=== PATIENT | male | born 1950 | race Caucasian/White ===

== ENCOUNTER 2017-11-01 10:13 | Emergency (ER) | payer MEDICARE ==
[~2017-11-01] VITALS: Ht 177.8 cm; Wt 117.9 kg
[~2017-11-01 10:13] MED LIST: Amitriptyline100 MG PO; CARV25 PO; COUMADIN; DIGO.125 PO; DOFE250; DOFE500 PO; GEMF600 PO; HYDACE10B PO; HYDCOR1TC TOP; IBUP800 PO; INSULANI SC; INSULANPEN SC; LISI5 PO; METF500C; METO100; METO100 PO; METO50 PO; PIOG45 PO; PRADAXA75 MG PO; Prednisone20 MG PO; SIMVASTIN PO; WARF10 PO; WARF7.5 PO
[2017-11-01] MEDS ORDERED: SIMV10 PO (10:36)
[2017-11-01] MEDS ORDERED: Colace100 MG PO (10:49)
[2017-11-01] MEDS ORDERED: Percocet 5-3251 EACH PO (10:49)
[2017-11-01] MEDS ORDERED: Cyclobenzaprine5 MG PO (10:49)
== END 2017-11-01 10:50 | disposition home or self-care (01) ==
LOC: ER 10:13
DX: M54.2 Cervicalgia (principal); Z79.899 Other long term (current) drug therapy; Z79.4 Long term (current) use of insulin; I48.91 Unspecified atrial fibrillation; Z87.891 Personal history of nicotine dependence
CPT/HCPCS: 99283

== ENCOUNTER 2018-01-27 11:52 | Observation (INO) | payer MEDICARE ==
[~2018-01-27] VITALS: Ht 177.8 cm; Wt 111.5 kg
[~2018-01-27 11:52] MED LIST changes: +Colace100 MG PO; +Cyclobenzaprine5 MG PO; +Percocet 5-3251 EACH PO; +SIMV10 PO
[2018-01-27 12:20] LABS: BASOPHILS ABSOLUTE AUTO 0.09 K/mm3 (0.00-0.23); BASOPHILS PERCENT AUTO 1 % (0-2); EOSINOPHILS ABSOLUTE AUTO 0.09 K/mm3 (0.00-0.68); EOSINOPHILS PERCENT AUTO 1 % (0-6); Hematocrit 49.3 % (37.0-53.0); Hemoglobin 16.6 g/dL (13.5-17.5); IMMATURE GRAN ABSOLUTE AUTO 0.06 K/mm3 (0.00-0.10); IMMATURE GRAN PERCENT AUTO 0 % (0-1); LYMPHOCYTES ABSOLUTE AUTO 2.26 K/mm3 (0.84-5.20); LYMPHOCYTES PERCENT AUTO 16 % (21-46); MONOCYTES PERCENT AUTO 6 % (4-13); Mean Corpuscular HGB Conc 33.7 g/dL (31.5-36.5); Mean Corpuscular Volume 92 fL (80-100); Mean Platelet Volume 10.4 fL (9.1-12.4); NEUTROPHILS ABSOLUTE AUTO 10.45 K/mm3 (1.96-9.15); NEUTROPHILS PERCENT AUTO 76 % (41-73); Platelet Count 276 K/mm3 (150-400); RDW Coefficient Variation 13.9 % (11.7-14.2); Red Blood Cell Count 5.36 M/mm3 (4.30-5.90); White Blood Cell Count 13.75 K/mm3 (4.00-11.30)
[2018-01-27] MEDS ORDERED: Novolog Fl100 UNIT/1 INJ (12:39)
[2018-01-27 12:40] LABS: Alanine Aminotransfer (ALT/SGP 33 U/L (12-78); Albumin, Blood 4.1 g/dL (3.4-5.0); Albumin/Globulin Ratio 0.9 (0.8-1.8); Alk Phos 88 U/L (50-136); Anion Gap 10 mmol/L (6-16); Aspartate Aminotrans (AST/SGOT 9 U/L (12-37); Bilirubin, Total 0.4 mg/dL (0.1-1.0); Blood Urea Nitrogen 16 mg/dL (8-24); Bun/Creatinine Ratio 21.5 (12.0-20.0); CO2, Blood 24 mmol/L (21-32); Calcium, Blood 9.1 mg/dL (8.5-10.1); Chloride, Blood 105 mmol/L (98-108); Creatinine, Blood 0.74 mg/dL (0.60-1.20); Globulin, Blood 4.4 g/dL (2.2-4.0); Glomerular Filtration Rate >60 (60-); Glucose, Blood 202 mg/dL (70-99); Potassium, Blood 4.1 mmol/L (3.5-5.5); Sodium, Blood 139 mmol/L (136-145); Total Protein, Blood 8.5 g/dL (6.4-8.2); Troponin I <0.015 ng/mL (0.000-0.040)
[2018-01-27] MEDS ORDERED: NITR.4SL SL (12:41)
[2018-01-27] MEDS ORDERED: LISI5 PO (12:42)
[2018-01-27] MEDS ORDERED: Cartia Xt240 MG PO (12:42)
[2018-01-27] MEDS ORDERED: ELIQUIS5 MG PO (12:44)
[2018-01-27 13:29] LABS: Source, Urine Clean Catch
[2018-01-27 13:33] LABS: Appearance, Urine Clear (Clear); Bilirubin, Urine Neg (Neg); Blood, Urine 2+ (Neg); Color, Urine Yellow (P-Yellow); Glucose Qualitative, Urine 3+ (Neg); Ketones, Urine 2+ (Neg); Leukocyte Esterase, Urine Neg (Neg); Nitrite, Urine Neg (Neg); Protein, Urine 1+ (Neg); Urobilinogen, Urine NORM (Normal)
[2018-01-27 13:43] LABS: Bacteria Few /hpf; Mucus Light (0-Heavy); Squamous Epithelial Cells Not Seen /hpf (Few); White Blood Cells, Urine 0-2 /hpf (0-5)
[2018-01-27] MEDS ORDERED: HYDR1TAB94 PO (18:50)
[2018-01-27] MEDS ORDERED: MIRALAX17 GM PO (18:50)
[2018-01-27] MEDS ORDERED: Senna8.6 MG PO (18:51)
[2018-01-28 03:58] LABS: Hematocrit 41.7 % (37.0-53.0); Hemoglobin 13.9 g/dL (13.5-17.5); Mean Corpuscular HGB 30.7 pg (26.0-34.0); Mean Corpuscular HGB Conc 33.3 g/dL (31.5-36.5); Mean Corpuscular Volume 92 fL (80-100); Mean Platelet Volume 10.7 fL (9.1-12.4); Platelet Count 220 K/mm3 (150-400); RDW Coefficient Variation 13.9 % (11.7-14.2); RDW Standard Deviation 47.3 fL (35.1-46.3); Red Blood Cell Count 4.53 M/mm3 (4.30-5.90); White Blood Cell Count 12.08 K/mm3 (4.00-11.30)
[2018-01-28 04:19] LABS: Anion Gap 8 mmol/L (6-16); Blood Urea Nitrogen 8 mg/dL (8-24); Bun/Creatinine Ratio 11.9 (12.0-20.0); CO2, Blood 25 mmol/L (21-32); Calcium, Blood 8.3 mg/dL (8.5-10.1); Chloride, Blood 110 mmol/L (98-108); Creatinine, Blood 0.67 mg/dL (0.60-1.20); Glomerular Filtration Rate >60 (60-); Glucose, Blood 143 mg/dL (70-99); Sodium, Blood 143 mmol/L (136-145)
[2018-01-28] MEDS ORDERED: Hydrocodone-Ap1 EA20 PO (11:11)
[2018-01-28] MEDS ORDERED: Florastor250 MG PO (11:12)
[2018-01-28] MEDS ORDERED: METR500 PO (11:13)
[2018-01-28] MEDS ORDERED: CIPR500 PO (11:13)
[2018-01-28] MEDS ORDERED: PROM25 PO (11:15)
[2018-01-28] MEDS ORDERED: ABAT250V (11:15)
== END 2018-01-28 13:00 | disposition home or self-care (01) ==
LOC: ER 11:52 → PCU 11:53 → ER 16:24 → PCU 16:24
PROVIDERS: Family Medicine; Internal Medicine
DX: A41.9 Sepsis, unspecified organism (principal); K52.9 Noninfective gastroenteritis and colitis, unspecified; I48.2 Chronic atrial fibrillation; E11.9 Type 2 diabetes mellitus without complications; I10 Essential (primary) hypertension; I25.10 Atherosclerotic heart disease of native coronary artery without angina pectoris; E78.5 Hyperlipidemia, unspecified; Z87.891 Personal history of nicotine dependence; Z79.4 Long term (current) use of insulin; Z79.899 Other long term (current) drug therapy
CPT/HCPCS: 36415; 71046; 74177; 80048; 80053; 81001; 82947; 83605; 83880; 84484; 85025; 85027; 87040; 93005; 93010; 96361; 96374; 96375; 99285; C9113; G0378; J0780; J1650; J1815; J1956; J2405; J2550; J3490; J7030; J7120; Q9967

== ENCOUNTER 2019-05-25 07:01 | Emergency (ER) | payer MEDICARE ==
[~2019-05-25] VITALS: Ht 177.8 cm; Wt 112.5 kg
[~2019-05-25 07:01] MED LIST changes: +ABAT250V; +CIPR500 PO; +Cartia Xt240 MG PO; +ELIQUIS5 MG PO; +Florastor250 MG PO; +HYDR1TAB94 PO; +Hydrocodone-Ap1 EA20 PO; +METR500 PO; +MIRALAX17 GM PO; +NITR.4SL SL; +Novolog Fl100 UNIT/1 INJ; +PROM25 PO; +Senna8.6 MG PO
[2019-05-25] MEDS ORDERED: METO25 PO (07:15)
[2019-05-25] MEDS ORDERED: PACERONE100 MG PO (07:15)
[2019-05-25] MEDS ORDERED: EZET10 PO (07:16)
[2019-05-25] MEDS ORDERED: TRAZ50 PO (07:16)
[2019-05-25] MEDS ORDERED: LOVA40 PO (07:17)
[2019-05-25] MEDS ORDERED: Prinivil5 MG PO (07:17)
[2019-05-25] MEDS ORDERED: DOFE500 PO (07:18)
[2019-05-25] MEDS ORDERED: Bactrim Ds Tab1 EACH PO (07:41)
[2019-05-25] MEDS ORDERED: Mupirocin22 GM TOP (07:41)
== END 2019-05-25 07:48 | disposition home or self-care (01) ==
LOC: ER 07:01
DX: S90.412A Abrasion, left great toe, initial encounter (principal); L08.9 Local infection of the skin and subcutaneous tissue, unspecified; F17.200 Nicotine dependence, unspecified, uncomplicated; Z95.1 Presence of aortocoronary bypass graft; E11.9 Type 2 diabetes mellitus without complications; I48.91 Unspecified atrial fibrillation; W45.8XXA Other foreign body or object entering through skin, initial encounter
CPT/HCPCS: 99283

== ENCOUNTER 2020-07-01 10:52 | Emergency (ER) | payer MEDICARE ==
[~2020-07-01] VITALS: Ht 177.8 cm; Wt 105.2 kg
[~2020-07-01 10:52] MED LIST changes: +Bactrim Ds Tab1 EACH PO; +EZET10 PO; +LOVA40 PO; +METO25 PO; +Mupirocin22 GM TOP; +PACERONE100 MG PO; +Prinivil5 MG PO; +TRAZ50 PO
[2020-07-01 11:52] LABS: BASOPHILS ABSOLUTE AUTO 0.07 K/mm3 (0.00-0.23); BASOPHILS PERCENT AUTO 1 % (0-2); EOSINOPHILS ABSOLUTE AUTO 0.32 K/mm3 (0.00-0.68); EOSINOPHILS PERCENT AUTO 3 % (0-6); Hematocrit 47.2 % (37.0-53.0); Hemoglobin 15.2 g/dL (13.5-17.5); IMMATURE GRAN ABSOLUTE AUTO 0.02 K/mm3 (0.00-0.10); IMMATURE GRAN PERCENT AUTO 0 % (0-1); LYMPHOCYTES ABSOLUTE AUTO 3.27 K/mm3 (0.84-5.20); LYMPHOCYTES PERCENT AUTO 32 % (21-46); MONOCYTES ABSOLUTE AUTO 0.74 K/mm3 (0.16-1.47); MONOCYTES PERCENT AUTO 7 % (4-13); Mean Corpuscular HGB 28.6 pg (26.0-34.0); Mean Corpuscular HGB Conc 32.2 g/dL (31.5-36.5); Mean Corpuscular Volume 89 fL (80-100); Mean Platelet Volume 10.1 fL (9.1-12.4); NEUTROPHILS ABSOLUTE AUTO 5.81 K/mm3 (1.96-9.15); NEUTROPHILS PERCENT AUTO 57 % (41-73); Platelet Count 260 K/mm3 (150-400); RDW Coefficient Variation 14.1 % (11.7-14.2); RDW Standard Deviation 45.3 fL (35.1-46.3); Red Blood Cell Count 5.32 M/mm3 (4.30-5.90); White Blood Cell Count 10.23 K/mm3 (4.00-11.30)
[2020-07-01 12:10] LABS: Alanine Aminotransfer (ALT/SGP 16 U/L (12-78); Albumin, Blood 3.8 g/dL (3.4-5.0); Albumin/Globulin Ratio 0.9 (0.8-1.8); Alk Phos 106 U/L (50-136); Anion Gap 4 mmol/L (6-16); Aspartate Aminotrans (AST/SGOT 10 U/L (12-37); Bilirubin, Total 0.4 mg/dL (0.1-1.0); Blood Urea Nitrogen 14 mg/dL (8-24); CO2, Blood 28 mmol/L (21-32); Calcium, Blood 9.6 mg/dL (8.5-10.1); Chloride, Blood 107 mmol/L (98-108); Creatinine, Blood 0.74 mg/dL (0.60-1.20); Globulin, Blood 4.3 g/dL (2.2-4.0); Glomerular Filtration Rate >60 (60-); Glucose, Blood 132 mg/dL (70-99); Potassium, Blood 4.9 mmol/L (3.5-5.5); Sodium, Blood 139 mmol/L (136-145); Total Protein, Blood 8.1 g/dL (6.4-8.2)
[2020-07-01] MEDS ORDERED: Monodox100 MG PO (13:22)
== END 2020-07-01 13:32 | disposition home or self-care (01) ==
LOC: ER 10:52
PROVIDERS: Physician Assistant
DX: L03.115 Cellulitis of right lower limb (principal); Z79.4 Long term (current) use of insulin; Z79.899 Other long term (current) drug therapy
CPT/HCPCS: 36415; 73610; 80053; 85025; 99283-25

== ENCOUNTER 2020-07-14 09:45 | Emergency (ER) | payer MEDICARE ==
[~2020-07-14] VITALS: Ht 182.9 cm; Wt 85.7 kg
[~2020-07-14 09:45] MED LIST changes: +Monodox100 MG PO
[2020-07-14] MEDS ORDERED: Monodox100 MG PO (10:51)
== END 2020-07-14 10:57 | disposition home or self-care (01) ==
LOC: ER 09:45
DX: L03.116 Cellulitis of left lower limb (principal); I87.8 Other specified disorders of veins; E11.9 Type 2 diabetes mellitus without complications; I48.91 Unspecified atrial fibrillation; F17.200 Nicotine dependence, unspecified, uncomplicated; Z95.1 Presence of aortocoronary bypass graft; Z79.4 Long term (current) use of insulin; Z79.899 Other long term (current) drug therapy
CPT/HCPCS: 99283

== ENCOUNTER 2021-01-03 21:43 | Emergency (ER) | payer MEDICARE ==
[~2021-01-03] VITALS: Ht 177.8 cm; Wt 109.8 kg
[2021-01-03 22:43] LABS: BASOPHILS ABSOLUTE AUTO 0.03 K/mm3 (0.00-0.23); BASOPHILS PERCENT AUTO 0 % (0-2); EOSINOPHILS PERCENT AUTO 0 % (0-6); Hematocrit 47.6 % (37.0-53.0); Hemoglobin 16.3 g/dL (13.5-17.5); IMMATURE GRAN PERCENT AUTO 1 % (0-1); LYMPHOCYTES ABSOLUTE AUTO 1.75 K/mm3 (0.84-5.20); LYMPHOCYTES PERCENT AUTO 9 % (21-46); MONOCYTES PERCENT AUTO 7 % (4-13); Mean Corpuscular HGB 28.8 pg (26.0-34.0); Mean Corpuscular HGB Conc 34.2 g/dL (31.5-36.5); Mean Corpuscular Volume 84 fL (80-100); Mean Platelet Volume 10.6 fL (9.1-12.4); NEUTROPHILS ABSOLUTE AUTO 16.53 K/mm3 (1.96-9.15); NEUTROPHILS PERCENT AUTO 84 % (41-73); Platelet Count 283 K/mm3 (150-400); RDW Standard Deviation 43.2 fL (35.1-46.3); Red Blood Cell Count 5.65 M/mm3 (4.30-5.90); White Blood Cell Count 19.71 K/mm3 (4.00-11.30)
[2021-01-03 23:01] LABS: Alanine Aminotransfer (ALT/SGP 18 U/L (12-78); Albumin, Blood 3.5 g/dL (3.4-5.0); Albumin/Globulin Ratio 0.8 (0.8-1.8); Alk Phos 84 U/L (50-136); Anion Gap 8 mmol/L (6-16); Aspartate Aminotrans (AST/SGOT 14 U/L (12-37); Bilirubin, Total 0.7 mg/dL (0.1-1.0); Blood Urea Nitrogen 20 mg/dL (8-24); CO2, Blood 23 mmol/L (21-32); Chloride, Blood 107 mmol/L (98-108); Creatinine, Blood 0.67 mg/dL (0.60-1.20); Globulin, Blood 4.5 g/dL (2.2-4.0); Glomerular Filtration Rate >60 (60-); Glucose, Blood 235 mg/dL (70-99); Sodium, Blood 138 mmol/L (136-145)
[2021-01-04 01:29] LABS: Source, Urine Clean Catch
[2021-01-04 01:51] LABS: Bilirubin, Urine Neg (Neg); Blood, Urine 4+ (Neg); Glucose Qualitative, Urine 4+ (Neg); Ketones, Urine 2+ (Neg); Leukocyte Esterase, Urine 1+ (Neg); Nitrite, Urine Neg (Neg); Protein, Urine 3+ (Neg); Specific Gravity, Urine 1.025 (1.003-1.022); Urobilinogen, Urine NORM (Normal)
[2021-01-04 02:02] LABS: Appearance, Urine Clear (Clear); Color, Urine Yellow (P-Yellow)
[2021-01-04 02:11] LABS: Amorphous Light (0-Heavy); Bacteria Rare /hpf; Mucus Heavy (0-Heavy); Red Blood Cells, Urine 0-2 /hpf (0-2); Squamous Epithelial Cells Not Seen /hpf (Few)
[2021-01-04 02:47] LABS: Creatine Kinase MB 2.9 ng/mL (0.0-3.6); Creatine Kinase MB Index 1.4 (0.0-4.0)
[2021-01-04] MEDS ORDERED: Ondansetron Odt8 MG MM (02:54)
== END 2021-01-04 03:14 | disposition home or self-care (01) ==
LOC: ER 21:43
PROVIDERS: Emergency Medicine; Physician Assistant
DX: R10.9 Unspecified abdominal pain (principal); R11.10 Vomiting, unspecified; E11.9 Type 2 diabetes mellitus without complications; I48.91 Unspecified atrial fibrillation; F17.210 Nicotine dependence, cigarettes, uncomplicated; Z79.899 Other long term (current) drug therapy; Z79.4 Long term (current) use of insulin
CPT/HCPCS: 36415; 74176; 80053; 81001; 82550; 82553; 82947; 83605; 85025; 93005; 93010; 96374; 96375; 96376; 99284-25; J2270; J2405; J7030

== ENCOUNTER 2021-01-06 15:58 | Emergency (ER) | payer MEDICARE ==
[~2021-01-06] VITALS: Ht 177.8 cm; Wt 108.0 kg
[~2021-01-06 15:58] MED LIST changes: +Ondansetron Odt8 MG MM
[2021-01-06 17:10] LABS: BASOPHILS ABSOLUTE AUTO 0.05 K/mm3 (0.00-0.23); BASOPHILS PERCENT AUTO 0 % (0-2); EOSINOPHILS PERCENT AUTO 1 % (0-6); Hematocrit 46.8 % (37.0-53.0); Hemoglobin 15.7 g/dL (13.5-17.5); IMMATURE GRAN ABSOLUTE AUTO 0.05 K/mm3 (0.00-0.10); IMMATURE GRAN PERCENT AUTO 0 % (0-1); LYMPHOCYTES ABSOLUTE AUTO 3.79 K/mm3 (0.84-5.20); LYMPHOCYTES PERCENT AUTO 25 % (21-46); MONOCYTES ABSOLUTE AUTO 1.26 K/mm3 (0.16-1.47); MONOCYTES PERCENT AUTO 8 % (4-13); Mean Corpuscular HGB 28.6 pg (26.0-34.0); Mean Corpuscular HGB Conc 33.5 g/dL (31.5-36.5); Mean Corpuscular Volume 85 fL (80-100); NEUTROPHILS ABSOLUTE AUTO 10.13 K/mm3 (1.96-9.15); NEUTROPHILS PERCENT AUTO 66 % (41-73); Platelet Count 261 K/mm3 (150-400); RDW Coefficient Variation 13.6 % (11.7-14.2); RDW Standard Deviation 42.9 fL (35.1-46.3); Red Blood Cell Count 5.49 M/mm3 (4.30-5.90); White Blood Cell Count 15.38 K/mm3 (4.00-11.30)
[2021-01-06 17:27] LABS: Alanine Aminotransfer (ALT/SGP 63 U/L (12-78); Albumin, Blood 3.4 g/dL (3.4-5.0); Albumin/Globulin Ratio 0.8 (0.8-1.8); Alk Phos 82 U/L (50-136); Anion Gap 7 mmol/L (6-16); Aspartate Aminotrans (AST/SGOT 26 U/L (12-37); Bilirubin, Total 0.7 mg/dL (0.1-1.0); Blood Urea Nitrogen 19 mg/dL (8-24); Bun/Creatinine Ratio 23.9 (12.0-20.0); CO2, Blood 25 mmol/L (21-32); Calcium, Blood 8.9 mg/dL (8.5-10.1); Chloride, Blood 103 mmol/L (98-108); Creatinine, Blood 0.79 mg/dL (0.60-1.20); Globulin, Blood 4.3 g/dL (2.2-4.0); Glomerular Filtration Rate >60 (60-); Glucose, Blood 235 mg/dL (70-99); Potassium, Blood 4.1 mmol/L (3.5-5.5); Sodium, Blood 135 mmol/L (136-145); Total Protein, Blood 7.7 g/dL (6.4-8.2)
[2021-01-07] MEDS ORDERED: PLAVIX75 MG PO (13:40)
[2021-01-07] MEDS ORDERED: BASAGLAR K100 UNIT/1 SC (13:42)
[2021-01-07] MEDS ORDERED: NOVOLOG100 UNIT/2 SC (13:43)
[2021-01-07] MEDS ORDERED: OMEP20ER PO (16:49)
== END 2021-01-06 19:51 | disposition left against medical advice (07) ==
LOC: ER 15:58
PROVIDERS: Physician Assistant
DX: R11.10 Vomiting, unspecified (principal); G47.00 Insomnia, unspecified; R10.9 Unspecified abdominal pain; Z53.21 Procedure and treatment not carried out due to patient leaving prior to being seen by health care provider; Z79.4 Long term (current) use of insulin; Z79.02 Long term (current) use of antithrombotics/antiplatelets; Z79.899 Other long term (current) drug therapy
CPT/HCPCS: 36415; 80053; 83690; 85025; 86850; 86900; 86901; 99283

== ENCOUNTER 2021-01-07 13:07 | Inpatient (IN) | payer MEDICARE ==
[~2021-01-07] VITALS: Ht 177.8 cm; Wt 103.1 kg
[~2021-01-07 13:07] MED LIST changes: -BASAGLAR K100 UNIT/1 SC; -NOVOLOG100 UNIT/2 SC; -OMEP20ER PO; -PLAVIX75 MG PO
[2021-01-07] MEDS ORDERED: PLAVIX75 MG PO (13:40)
[2021-01-07] MEDS ORDERED: BASAGLAR K100 UNIT/1 SC (13:42)
[2021-01-07] MEDS ORDERED: NOVOLOG100 UNIT/2 SC (13:43)
[2021-01-07 13:50] LABS: BASOPHILS ABSOLUTE AUTO 0.05 K/mm3 (0.00-0.23); BASOPHILS PERCENT AUTO 0 % (0-2); EOSINOPHILS ABSOLUTE AUTO 0.14 K/mm3 (0.00-0.68); EOSINOPHILS PERCENT AUTO 1 % (0-6); Hematocrit 43.8 % (37.0-53.0); Hemoglobin 14.8 g/dL (13.5-17.5); IMMATURE GRAN ABSOLUTE AUTO 0.05 K/mm3 (0.00-0.10); IMMATURE GRAN PERCENT AUTO 0 % (0-1); LYMPHOCYTES ABSOLUTE AUTO 3.43 K/mm3 (0.84-5.20); LYMPHOCYTES PERCENT AUTO 27 % (21-46); MONOCYTES ABSOLUTE AUTO 1.13 K/mm3 (0.16-1.47); MONOCYTES PERCENT AUTO 9 % (4-13); Mean Corpuscular HGB 28.8 pg (26.0-34.0); Mean Corpuscular HGB Conc 33.8 g/dL (31.5-36.5); Mean Corpuscular Volume 85 fL (80-100); Mean Platelet Volume 10.9 fL (9.1-12.4); NEUTROPHILS ABSOLUTE AUTO 7.91 K/mm3 (1.96-9.15); NEUTROPHILS PERCENT AUTO 62 % (41-73); Platelet Count 236 K/mm3 (150-400); RDW Coefficient Variation 13.6 % (11.7-14.2); RDW Standard Deviation 42.7 fL (35.1-46.3); Red Blood Cell Count 5.13 M/mm3 (4.30-5.90); White Blood Cell Count 12.71 K/mm3 (4.00-11.30)
[2021-01-07 14:01] LABS: Alanine Aminotransfer (ALT/SGP 70 U/L (12-78); Albumin, Blood 3.1 g/dL (3.4-5.0); Albumin/Globulin Ratio 0.8 (0.8-1.8); Alk Phos 73 U/L (50-136); Anion Gap 7 mmol/L (6-16); Aspartate Aminotrans (AST/SGOT 26 U/L (12-37); Bilirubin, Total 0.6 mg/dL (0.1-1.0); Blood Urea Nitrogen 18 mg/dL (8-24); Bun/Creatinine Ratio 22.8 (12.0-20.0); CO2, Blood 25 mmol/L (21-32); Calcium, Blood 8.4 mg/dL (8.5-10.1); Chloride, Blood 105 mmol/L (98-108); Creatinine, Blood 0.79 mg/dL (0.60-1.20); Globulin, Blood 3.8 g/dL (2.2-4.0); Glomerular Filtration Rate >60 (60-); Glucose, Blood 195 mg/dL (70-99); Magnesium, Blood 2.1 mg/dL (1.6-2.4); Phosphorus, Blood 2.5 mg/dL (2.5-4.9); Potassium, Blood 3.3 mmol/L (3.5-5.5); Sodium, Blood 137 mmol/L (136-145); Total Protein, Blood 6.9 g/dL (6.4-8.2); Troponin I 0.035 ng/mL (0.000-0.040)
[2021-01-07 15:31] LABS: Influenza A, PCR NEGATIVE (NEGATIVE); Influenza B, PCR NEGATIVE (NEGATIVE); Resp Syncytial Virus, PCR NEGATIVE (NEGATIVE); SARS-Cov-2 (COVID-19) PCR, MMC NEGATIVE (NEGATIVE)
[2021-01-07 15:57] LABS: Source, Urine Clean Catch
[2021-01-07 16:33] LABS: Appearance, Urine Clear (Clear); Bilirubin, Urine Neg (Neg); Blood, Urine 1+ (Neg); Color, Urine Yellow (P-Yellow); Glucose Qualitative, Urine 1+ (Neg); Ketones, Urine Neg (Neg); Leukocyte Esterase, Urine Neg (Neg); Nitrite, Urine Neg (Neg); Protein, Urine 2+ (Neg); Specific Gravity, Urine 1.015 (1.003-1.022); Urobilinogen, Urine NORM (Normal); pH, Urine 6.5 (5.0-8.0)
[2021-01-07] MEDS ORDERED: OMEP20ER PO (16:49)
[2021-01-07 17:16] LABS: Red Blood Cells, Urine 0-2 /hpf (0-2)
[2021-01-07 17:17] LABS: Bacteria Mod /hpf; Mucus Light (0-Heavy); Squamous Epithelial Cells Rare /hpf (Few)
[2021-01-08 04:42] LABS: BASOPHILS ABSOLUTE AUTO 0.06 K/mm3 (0.00-0.23); BASOPHILS PERCENT AUTO 1 % (0-2); EOSINOPHILS ABSOLUTE AUTO 0.21 K/mm3 (0.00-0.68); EOSINOPHILS PERCENT AUTO 2 % (0-6); Hemoglobin 12.8 g/dL (13.5-17.5); IMMATURE GRAN ABSOLUTE AUTO 0.05 K/mm3 (0.00-0.10); IMMATURE GRAN PERCENT AUTO 0 % (0-1); LYMPHOCYTES ABSOLUTE AUTO 3.41 K/mm3 (0.84-5.20); LYMPHOCYTES PERCENT AUTO 30 % (21-46); MONOCYTES ABSOLUTE AUTO 0.95 K/mm3 (0.16-1.47); MONOCYTES PERCENT AUTO 8 % (4-13); Mean Corpuscular HGB 28.4 pg (26.0-34.0); Mean Corpuscular HGB Conc 32.8 g/dL (31.5-36.5); Mean Corpuscular Volume 87 fL (80-100); NEUTROPHILS ABSOLUTE AUTO 6.86 K/mm3 (1.96-9.15); NEUTROPHILS PERCENT AUTO 60 % (41-73); Platelet Count 213 K/mm3 (150-400); RDW Coefficient Variation 13.7 % (11.7-14.2); RDW Standard Deviation 43.5 fL (35.1-46.3); Red Blood Cell Count 4.51 M/mm3 (4.30-5.90); White Blood Cell Count 11.54 K/mm3 (4.00-11.30)
[2021-01-08 05:00] LABS: Alanine Aminotransfer (ALT/SGP 60 U/L (12-78); Albumin, Blood 2.6 g/dL (3.4-5.0); Albumin/Globulin Ratio 0.9 (0.8-1.8); Alk Phos 62 U/L (50-136); Anion Gap 6 mmol/L (6-16); Aspartate Aminotrans (AST/SGOT 15 U/L (12-37); Bilirubin, Total 0.4 mg/dL (0.1-1.0); Blood Urea Nitrogen 18 mg/dL (8-24); Bun/Creatinine Ratio 26.4 (12.0-20.0); CO2, Blood 25 mmol/L (21-32); Calcium, Blood 7.9 mg/dL (8.5-10.1); Chloride, Blood 108 mmol/L (98-108); Creatinine, Blood 0.68 mg/dL (0.60-1.20); Glomerular Filtration Rate >60 (60-); Glucose, Blood 201 mg/dL (70-99); Potassium, Blood 4.2 mmol/L (3.5-5.5); Sodium, Blood 139 mmol/L (136-145); Total Protein, Blood 5.6 g/dL (6.4-8.2)
--- NOTE | 2021-01-08 06:30 | NUR ---
SHIFT SUMMARY PT ARRIVED FROM ER VIA STRETCHER AND SELF TRANSFERED TO BED; A&O X 4; DENIES CHEST PAIN; VSS; AFIB NOTED ON TELE; HR VARIABLE FROM 90-140; SIGNIFICANTLY INCREASES W/ ACTIVITY; CARDIZEM GTT TITRATED NEEDED; O2 SATS >93 ON RA; PRN SNACKS AND FLUIDS BROUGHT TO PT; SBA IN ROOM; HAD TWO EPISODES OF SUDDEN ONSET DIARRHEA; POTASSIUM COMPLETED; CURRENTLY SLEEPING; NO DISTRESS NOTED; CALL LIGHT IN REACH; BED IN LOWEST POSITION; WILL CONTINUE TO MONITOR CLOSELY UNTIL HAND OFF TO DAY SHIFT RN.
--- NOTE | 2021-01-08 17:53 | NUR ---
PT SUMMARY: PT ALERT AND ORIENTED AT BASELINE, VITALS HRR REMAINED AFIB 100-140'S HR INCREASES WITH EXERTION HAS BEEN OFF OF THE CARDIZEM GTT SINCE MIDNIGHT PO METOPROLOL 37.5 MG GIVEN THIS AM BUT BEFORE LUNCH TIME HR STARTED CLIMBING UP TO 140'S CARDIZEM GTT RESTARTED AT 10MG/HR PT STAYS ON THE 90-100'S, BP SYSTOLIC 110'S, SATS ABOVE 95% ON RA, AFEBRILE. PT DENIES CHEST PAIN/PRESSURE/SOB. PT HAS BEEN C/O FLANK PAIN 05/20 HAS BEEN GETTING FENTANYL IV AND WAS SWITCHED TO TORADOL 15MG X 5 DAYS Q6 HRS. EFFECTIVE OF THIS TIME, METOPROLOL INCREASED TO 50MG XL BID. PT HAD 6 RUNS OF VTACH ASYMPTOMATIC, DR TROTTER AWARE. NO OTHER ISSUES ENCOUNTERED FOR THE, PT ABLE TO MAKE NEEDS KNOWN. WILL MONITOR UNTIL END OF SHIFT
--- NOTE | 2021-01-09 04:28 | NUR ---
AMA PT BECAME AGITATED APPROX 0200 THAT HE COULDN'T SLEEP. CALL PLACED TO NIGHT HOPISTALIST. HOSPITALIST WITH ORDERS FOR MELATONIN. MELATONIN BROUGHT TO PT. PT REFUSED MELATONIN. PT STATES "IT WONT WORK. I JUST WANT TO BE KNOCKED OUT." PT STATES HE USES MARIJUANA AT HOME TO HELP SLEEP. PT STATED HE WANTED TO GO HOME. PT EDUCATED ON THE RISKS OF GOING HOME BEFORE DISCHARGED BY MD. PT STATED HE "DIDNT CARE" HE "WANTED TO GO HOME". THIS RN TOOK LUNCH AT 0245, WHEN CAME BACK FROM LUNCH AT 0315, PT WAS NOT IN ROOM. CALL PLACED TO SECURITY, WHO CONFIRMED ON CAMERA SOMEONE FITTING PT'S DESCRIPTION GETTING INTO BLACK SUV AT APPROX 0310.
== END 2021-01-09 03:25 | disposition left against medical advice (07) | DRG 310 ==
LOC: ER 13:07 → PCU 13:08
PROVIDERS: Physician Assistant; ADMIT Internal Medicine
DX: I48.91 Unspecified atrial fibrillation (principal); Z87.891 Personal history of nicotine dependence; K42.9 Umbilical hernia without obstruction or gangrene; I10 Essential (primary) hypertension; E11.51 Type 2 diabetes mellitus with diabetic peripheral angiopathy without gangrene; E78.5 Hyperlipidemia, unspecified; Z20.822 Contact with and (suspected) exposure to COVID-19; I25.10 Atherosclerotic heart disease of native coronary artery without angina pectoris; Z79.02 Long term (current) use of antithrombotics/antiplatelets; Z79.899 Other long term (current) drug therapy; Z90.49 Acquired absence of other specified parts of digestive tract; Z98.890 Other specified postprocedural states; Z79.4 Long term (current) use of insulin; I25.2 Old myocardial infarction; Z95.1 Presence of aortocoronary bypass graft; Z96.612 Presence of left artificial shoulder joint; M54.5 Low back pain; R10.9 Unspecified abdominal pain
CPT/HCPCS: 0241U; 36415; 80053; 81001; 82947; 83735; 84100; 84484; 85025; 86850; 86900; 86901; 87086; 93005; 93010; 96361; 96365; 96372; 96375; 96376; 99285-25; A9270; G0378; J1650; J1885; J3010; J3475; J3480; J7030; Q2038

== ENCOUNTER → 2021-01-07 | Outpatient (CLI) | payer MEDICARE ==
[~2021-01-07] MED LIST changes: +BASAGLAR K100 UNIT/1 SC; +NOVOLOG100 UNIT/2 SC; +OMEP20ER PO; +PLAVIX75 MG PO
[2021-01-07 11:56] LABS: BASOPHILS ABSOLUTE AUTO 0.04 K/mm3 (0.00-0.23); BASOPHILS PERCENT AUTO 0 % (0-2); EOSINOPHILS ABSOLUTE AUTO 0.12 K/mm3 (0.00-0.68); EOSINOPHILS PERCENT AUTO 1 % (0-6); Hematocrit 45.1 % (37.0-53.0); Hemoglobin 15.2 g/dL (13.5-17.5); IMMATURE GRAN ABSOLUTE AUTO 0.05 K/mm3 (0.00-0.10); IMMATURE GRAN PERCENT AUTO 0 % (0-1); LYMPHOCYTES ABSOLUTE AUTO 3.34 K/mm3 (0.84-5.20); LYMPHOCYTES PERCENT AUTO 28 % (21-46); MONOCYTES ABSOLUTE AUTO 1.07 K/mm3 (0.16-1.47); MONOCYTES PERCENT AUTO 9 % (4-13); Mean Corpuscular HGB 28.7 pg (26.0-34.0); Mean Corpuscular HGB Conc 33.7 g/dL (31.5-36.5); Mean Corpuscular Volume 85 fL (80-100); Mean Platelet Volume 10.9 fL (9.1-12.4); NEUTROPHILS PERCENT AUTO 62 % (41-73); Platelet Count 249 K/mm3 (150-400); RDW Coefficient Variation 13.8 % (11.7-14.2); RDW Standard Deviation 42.5 fL (35.1-46.3); White Blood Cell Count 12.12 K/mm3 (4.00-11.30)
[2021-01-07 12:20] LABS: Alanine Aminotransfer (ALT/SGP 74 U/L (12-78); Albumin, Blood 3.3 g/dL (3.4-5.0); Albumin/Globulin Ratio 0.8 (0.8-1.8); Alk Phos 75 U/L (40-126); Anion Gap 12 mmol/L (6-16); Aspartate Aminotrans (AST/SGOT 25 U/L (12-37); Bilirubin, Total 0.7 mg/dL (0.1-1.0); Blood Urea Nitrogen 20 mg/dL (8-24); Bun/Creatinine Ratio 20.8 (12.0-20.0); CO2, Blood 26 mmol/L (21-32); Calcium, Blood 8.9 mg/dL (8.5-10.1); Chloride, Blood 99 mmol/L (98-108); Creatinine, Blood 0.96 mg/dL (0.60-1.20); Globulin, Blood 4.2 g/dL (2.2-4.0); Glomerular Filtration Rate >60 (60-); Glucose, Blood 217 mg/dL (70-99); Potassium, Blood 3.6 mmol/L (3.5-5.5); Sodium, Blood 137 mmol/L (136-145); Total Protein, Blood 7.5 g/dL (6.4-8.2); Troponin I 0.042 ng/mL (0.000-0.040)
== END | disposition home or self-care (01) ==
LOC: LAB EV 11:50 → LAB SHORT 11:50
PROVIDERS: Physician Assistant
DX: I73.9 Peripheral vascular disease, unspecified (principal); R00.0 Tachycardia, unspecified
CPT/HCPCS: 80053; 83690; 84484; 85025